=== PATIENT | male | born 1970 | race Caucasian/White ===

== ENCOUNTER 2019-06-05 07:41 | Observation (INO) | payer OTHER ==
[~2019-06-05] VITALS: Ht 172.7 cm; Wt 76.7 kg
--- NOTE | 2019-06-05 07:41 | NUR ---
Patient BIBA ALS, transferred to bed 6. RN evaluating patient at bedside.
[2019-06-05 07:45] VITALS: BP 121/76
--- NOTE | 2019-06-05 07:45 | NUR ---
48 y/o male biba with c/c of medication overdose. per patient took seizure medication "too early" medication is to be taken q12h pt took it 6 hours earlier. per pt nka. medical hx of grand mal seizures and vertigo. rx baclofen, vitamin D, levetiracetam, methocarbamol. pt denies n/v/d. neuro assessment, pupils PERRLA, extremities weak, pt currently sleepy but a/ox4. seizure precautions in place. side rails padded.
[2019-06-05] MEDS ORDERED: METH-1681 PO (07:47)
[2019-06-05] MEDS ORDERED: CHOL100037 PO (07:47)
[2019-06-05] MEDS ORDERED: BACL10TA4 PO (07:47)
[2019-06-05] MEDS ORDERED: LEVE500T9 PO (07:47)
--- NOTE | 2019-06-05 07:50 | NUR ---
Dr. Lemus is evaluating the patient at bedside.
[2019-06-05] MEDS: NACL 0.9% 1,000 ML IV ONE (07:52)
--- NOTE | 2019-06-05 07:59 | NUR ---
radiation protection technician at bedside.
[2019-06-05] MEDS: ONDANSETRON 4 MG/2 ML VIAL IVP ONE (08:03)
[2019-06-05] MEDS: NACL 0.9% 1,000 ML IV SCH (08:07)
--- NOTE | 2019-06-05 08:10 | NUR ---
EKG completed at bedside by EMT.
--- NOTE | 2019-06-05 08:16 | NUR ---
Patient taken to CT scan via gurney by [facility].
--- NOTE | 2019-06-05 08:32 | NUR ---
pt back in bed from ct
[2019-06-05 09:12] LABS: BASOPHILS # (AUTO) 0.1 K/uL (0.00-0.22); BASOPHILS % (AUTO) 0.9 % (0.0-2.0); EOSINOPHILS # (AUTO) 0.1 K/uL (0-0.4); EOSINOPHILS % (AUTO) 0.9 % (0.0-4.0); HEMATOCRIT 43.4 % (36-52); HEMOGLOBIN 14.8 g/dL (12.0-18.0); LYMPHOCYTES # (AUTO) 1.3 K/uL (2.0-11.5); LYMPHOCYTES % (AUTO) 15.3 % (20.5-51.1); MEAN CORPUSCULAR HEMOGLOBIN 31 pg (27-31); MEAN CORPUSCULAR HGB CONC 34 g/dL (33-37); MEAN CORPUSCULAR VOLUME 92.2 fL (80-94); MONOCYTES # (AUTO) 0.6 K/uL (0.8-1.0); NEUTROPHILS # (AUTO) 6.6 K/uL (1.8-7.7); NEUTROPHILS % (AUTO) 75.9 % (42.2-75.2); PLATELET COUNT (AUTO) 188 K/uL (140-450); RED CELL DISTRIBUTION WIDTH 13.1 % (11.6-13.7); WHITE BLOOD COUNT (AUTO) 8.8 K/uL (4.8-10.8)
[2019-06-05 09:18] LABS: ANION GAP 10.6 (8-16); CARBON DIOXIDE 26.5 mmol/L (21-32); CHLORIDE 99 mmol/L (98-107); CREATININE 1.1 mg/dL (0.7-1.3); GFR ARICAN-AMERICAN 92 mL/min (>90); GLUCOSE 97 mg/dL (74-106); POTASSIUM 4.1 mmol/L (3.5-5.1); SODIUM SERUM 132 mmol/L (136-145); UREA NITROGEN, BLOOD 12 mg/dL (7-18)
--- NOTE | 2019-06-05 09:22 | NUR ---
pt resting in bed, side rails padded sz precautions, family at bedside
[2019-06-05 09:25] LABS: ALBUMIN 3.2 g/dL (3.4-5.0); AMYLASE 72 U/L (25-115); ASPARTATE AMINOTRANSFERASE 29 U/L (15-37); LIPASE 150 U/L (73-393); SALICYLATE < 2.8 mg/dL (2.8-20.0); TOTAL BILIRUBIN 0.2 mg/dL (0.0-1.0)
[2019-06-05 09:26] LABS: ACETAMINOPHEN < 0.5 ug/ml (10-30)
--- NOTE | 2019-06-05 09:27 | NUR ---
pending urine, urinal at bedside, pt aware
--- NOTE | 2019-06-05 10:10 | NUR ---
RECEIVED BEDSIDE REPORT FROM ER NURSE. PT IS AWAKE, ALERT AND ORIENTED X4. NO SIGNS OF DISTRESS. PT HAS IV ON LEFT AC 18G INFUSING NS AT 100. CLEAN DRY AND INTACT. TELE MONITOR IN PLACE. MRSA NARES COMPLETED. VITALS WITHIN NORMAL LIMITS. PT IS AMBULATORY AND CONTINENT. ABLE TO MAKE NEEDS KNOWN. BED ON LOW POSITION. CALL LIGHT IN PLACE.
--- NOTE | 2019-06-05 10:18 | NUR ---
Patient will be admitted to care of DR SEVERINO. Admited to TELEMETRY. Will go to room 121B. Belongings list completed. Report to [facility]. UA ENDORSED TO TOMMY
[2019-06-05 10:30] VITALS: BP 120/70
[2019-06-05] MEDS ORDERED: FOS70 PO (11:26)
[2019-06-05] MEDS ORDERED: CALC-575 PO (11:26)
[2019-06-05] MEDS ORDERED: FISH10005 PO (11:26)
[2019-06-05] MEDS ORDERED: CHOL200035 PO (11:26)
[2019-06-05 12:00] VITALS: BP 112/71
--- NOTE | 2019-06-05 12:00 | NUR ---
PATIENT IN NO DISTRESS. WILL CONTINUE TO MONITOR THE PATIENT
[2019-06-05] MEDS ORDERED: OXCA150T2 PO (12:49)
[2019-06-05] MEDS ORDERED: LACO150T PO (12:49)
[2019-06-05] MEDS ORDERED: LAM200 PO (12:49)
--- NOTE | 2019-06-05 13:09 | NUR ---
DR SEVERINO SAID IF ER DID NOT CALL POISON CONTROL THEN TO CONTACT POISON CONTROL TO SEE IF THEIR ARE ANY SPECIFIC PRECAUTIONS WITH SEIZURE MEDS TAKEN TOO EARLY. CALLED [phone], PER SEPTEMBER PATIENT IS CLEARED ON THEIR END JUST TO MAKE SURE WE ASK NEUROLOGIST WHEN HE SHOULD TAKE THE NEXT SEIZURE MEDICATIONS
[2019-06-05 13:50] LABS: APPEARANCE,URINE CLEAR (CLEAR); BILIRUBIN,URINE NEGATIVE (NEGATIVE); BLOOD, URINE NEGATIVE (NEGATIVE); COLOR,URINE YELLOW (YELLOW); LEUKOCYTE ESTERASE ,URINE NEGATIVE (NEGATIVE); NITRITE, URINE NEGATIVE (NEGATIVE); PH,URINE 7.5 (5.0-9.0); UGLUCOSE NEGATIVE (NEGATIVE)
--- NOTE | 2019-06-05 13:54 | NUR ---
CALLED NEUROLOGIST AT [phone]. SPOKE TO DR POOLE ABOUT PATIENT TAKING SEIZURE MEDICATIONS EARLY. HE STATED IF PATIENT IS NOT ALTERED THEN TO JUST CONTINUE HOME SEIZURE MEDS 12 HOURS APART. EDUCATED PATIENT THAT SINCE HE TOOK MEDS AT 6AM DR POOLE SAID TO TAKE THE NEXT MEDS AT 6PM. PATIENT AND PENSION EXAMINER VERBALIZED UNDERSTANDING
[2019-06-05 13:59] LABS: BARBITURATE, URINE NEG. ng/ml (NEG <=200); BENZODIAZEPINE, URINE NEG. ng/mL (NEG <=200); CANNABINOID, URINE NEG. ng/mL (NEG <=50); COCAINE, URINE NEG. ng/mL (NEG <=300); OPIATE, URINE NEG. ng/mL (NEG <=2000); PHENCYCLIDINE SCREEN,URINE NEG. ng/mL (NEG <=25)
--- NOTE | 2019-06-05 14:22 | NUR ---
DC PLANNING 48 YRS OLD MALE PATIENT ADMITTED FROM HOME WITH A DX OF NAUSEA AND VOMITING. PT HAS A HX OF SZ DISORDER . ADMINISTER ZOFRAN AND WILL CHECK KEPPRA LEVEL . DC PLAN TO GO HOME WHEN STABLE.
--- NOTE | 2019-06-05 15:24 | NUR ---
DR SEVERINO IS AWARE THAT POISON CONTROL CLEARED THE PATIENT AND SO DID HIS NEUROLOGIST. I TOLD HIM KEPPRA LEVEL PER LAB WILL TAKE 24HRS, HE SAID IF PATIENT IS NOT ALTERED WE CAN DISCHARGE THE PATIENT. HE ALSO STATED TO JUST GET PATIENTS CONTACT INFORMATION IN CASE HE NEEDS TO CALL ABOUT KEPPRA LEVEL. PATIENTS NUMBER IS [phone]. HE SAID CONTINUE HOME MEDS AND DISCHARGE PATIENT HOME.
[2019-06-05] MEDS: PNEUMOCOCCAL VACCINE 23 MCG/0.5 ML VIAL IMVAC SCH (16:36)
--- NOTE | 2019-06-05 16:45 | NUR ---
EDUCATED PATIENT TO DISEASE PROCESS, ABN S/SX, WHEN TO GO TO THE ER, EDUCATED ON MEDS, FOLLOW UP W PCP, POISON CONTROL CLEARED THE PATIENT. FLU UP TO DATE, PNA VACCINE GIVE D/T PATIENT BEING A SMOKER. PATIENT SIGNED PAPERWORK AND LEFT WITH HIS BRYOLOGIST IN STABLE CONDITION TO GO HOME.
== END 2019-06-05 16:45 | disposition home or self-care (01) ==
LOC: MED 07:41 → MTU 10:03
PROVIDERS: ADMIT Internal Medicine; ATTEND Internal Medicine
DX: T42.6X1A Poisoning by other antiepileptic and sedative-hypnotic drugs, accidental (unintentional), initial encounter (principal); R11.2 Nausea with vomiting, unspecified; G40.909 Epilepsy, unspecified, not intractable, without status epilepticus; E87.1 Hypo-osmolality and hyponatremia; Z79.899 Other long term (current) drug therapy; Z23 Encounter for immunization
CPT/HCPCS: 36415; 70450; 71045; 80053; 80173; 80305; 81003; 82150; 82550; 83690; 84484; 85025; 87081; 90471; 90732; 93005; 96361; 96374; 99285; G0378; G0480; G0482; J2405; J7030; Q0092